=== PATIENT | female | born 1965 | race Caucasian/White ===

== ENCOUNTER → 2016-07-26 | Outpatient (CLI) | payer OTHER ==
--- NOTE | 2016-07-26 18:37 | MA ---
Bilateral Digital Screening Mammography Clinical History: 50-year-old female whose maternal grandmother had breast cancer at age 70. The francis ent presents today for routine mammographic screening. Technique: Digital CC and MLO views of each breast are compared with previous studies dated March 18, 2014, February 13, 2014, and November 24, 2011. A cutaneous markers has been placed over a mole on the sk in surface of the right breast. Additionally, the exam is iCAD checked. Breast Density: Type B. CAD Evaluation: Reviewed. Findings: There is a moderately dense residual glandular pattern which is stable in appearance from p revious studies. Vascular calcifications are seen bilaterally, and there are small benign rounded sajan cifications also noted bilaterally. There are no suspicious clusters. Impression: Negative mammography. BIRADS category one. Recommendation: Routine annual mammographic screening. [facility] will send a result letter to the patient. Negative mammography should not preclude additional workup of a clinically suspicious finding. The patient's information is entered into a reminder system with a target due date for her next mammo gram.
--- NOTE | 2016-07-28 08:20 | DX ---
Bone Densitometry Indication: Screen for osteoporosis. Technique: DEXA scan was performed on [employer]ex[employer] Discovery W Bone Densitometer. Comparison Study: None at this location. Results: Lumbar Spine (L1-L4) BMD: 0.845 T-score: -1.8 Total Hip (Right) BMD: 0.790 T-score: -1.2 Femoral Neck (Right) BMD: 0.730 T-score: -1.1 Total Hip (Left) BMD: 0.784 T-score: -1.3 Femoral Neck (Left) BMD: 0.720 T-score: -1.2 Conclusion: Osteopenia. Additional Comments: 1. By FRAX calculation, the estimated 10-year risk of any major osteoporotic fracture is 4.9%. The e stimated 10-year risk of hip fracture is 0.3%. 2. Consider repeating this study in 2 years or as clinically indicated. NOTE: The risk of osteoporotic fracture increases approximately two-fold for each 1.0 SD decrease in T-score. The T-score represents the standard deviations from a young normal, same sex, reference po pulation. Low bone density is not the only risk factor for fracture. Clinical factors to consider include fall risk, previous osteoporotic fracture, family history of fractures, smoking, and low body weight. Patients who have an unexpectedly low BMD may need to be evaluated for secondary causes of low bone m ineral density. In comparing the present study to a prior study, lack of a significant increase or decrease in BMD ma y signify efficacy of the patient's present treatment. Bone mineral density measurements performed with densitometers produced by different manufacturers ar e not comparable. For the most reproducible BMD measurement, subsequent exams should be performed on the same densitometer.
== END ==
LOC: BMCIMAGING 14:29
PROVIDERS: ATTEND Internal Medicine
DX: Z12.31 Encounter for screening mammogram for malignant neoplasm of breast (principal); Z13.820 Encounter for screening for osteoporosis; M85.80 Other specified disorders of bone density and structure, unspecified site
CPT/HCPCS: G0202